=== PATIENT | female | born 1985 | race Caucasian/White ===

== ENCOUNTER → 2020-02-07 14:23 | Outpatient (BNVA) | payer OTHER, SELFPAY | PROVIDERS: Visit Provider Emergency Medicine | DX: J02.0 Streptococcal pharyngitis (principal) | CPT/HCPCS: 87880 ==

== ENCOUNTER 2022-09-01 09:47 | Outpatient (CLI) | payer BC, SELFPAY ==
--- NOTE | 2022-09-01 10:00 | US_ITS ---
WS: [id number] THYROID ULTRASOUND HISTORY: Checking the goiter. COMPARISON: None available. Right lobe: 0.9 cm x 1.1 cm x 3.7 cm (w x ap x l). Volume: 1.9 cm3. Small shrunken caliber thyroid with heterogeneity. No nodule. Echogenic short septations present with in the thyroid. Left lobe: 1.4 cm x 1.0 cm x 3.6 cm (w x ap x l). Volume: 2.7 cm3. Small echogenic thyroid. No mass or nodule. Isthmus: 0.2 cm. Small cervical chain lymph nodes. One LEFT cervical chain lymph node is slightly hypoechoic as compar ed to the rest. The size and shape are normal. May be a reactive lymph node. This lymph node measures 10 x 6 x 26 mm. US/US thyroid [id number] IMPRESSION: 1. Small shrunken thyroid consistent with a history of hypothyroidism. 2. No mass. 3. There is one mildly abnormal lymph node along the LEFT cervical chain which is probably reactive. If LEFT cervical chain lymph nodes increased in size fol low-up CT with contrast of the neck can be performed.
== END 2022-09-01 09:48 | disposition home or self-care (01) ==
LOC: RAD 09:48
PROVIDERS: PCP Family Medicine; Visit Provider Internal Medicine
DX: E04.9 Nontoxic goiter, unspecified (principal); E03.8 Other specified hypothyroidism; E06.3 Autoimmune thyroiditis
CPT/HCPCS: 76536